=== PATIENT | female | born 1960 ===

== ENCOUNTER 2017-11-30 11:21 | Outpatient (CLI) | payer SELFPAY | END 2017-11-30 11:22 | disposition home or self-care (01) | DRG 556 | LOC: CONVCARE 11:21 | PROVIDERS: ATTEND Orthopaedic Surgery | DX: M25.572 Pain in left ankle and joints of left foot (principal); S82.842A Displaced bimalleolar fracture of left lower leg, initial encounter for closed fracture | CPT/HCPCS: 73700 ==

== ENCOUNTER 2018-01-04 12:42 | Outpatient (CLI) | payer SELFPAY | END 2018-01-04 12:43 | disposition home or self-care (01) | DRG 561 | LOC: CONVCARE 12:42 | PROVIDERS: ATTEND Orthopaedic Surgery | DX: S82.62XD Displaced fracture of lateral malleolus of left fibula, subsequent encounter for closed fracture with routine healing (principal); S82.52XD Displaced fracture of medial malleolus of left tibia, subsequent encounter for closed fracture with routine healing | CPT/HCPCS: 73610 ==